=== PATIENT | male | born 1995 | race Two or more races ===

== ENCOUNTER 2024-03-23 06:20 | Emergency (ER) | payer OTHER ==
[~2024-03-23] VITALS: Ht 182.9 cm; Wt 97.0 kg
[2024-03-23 06:21] VITALS: TEMP 97.6
[2024-03-23] MEDS ORDERED: OMEP20 PO ×2 (06:28→08:29)
[2024-03-23] MEDS ORDERED: PROP10TA73 PO (06:28)
[2024-03-23] MEDS: ONDANSETRON HCL 4 MG/2 ML VIAL IVP ONE (06:56)
[2024-03-23] MEDS: SODIUM CHLORIDE 0.9% 1,000 ML IV ONE (06:57)
[2024-03-23 07:01] LABS: BASOPHILS % (AUTO) 2.7 % (0.0-2.0); EOSINOPHILS % (AUTO) 0.9 % (1.0-6.0); HEMATOCRIT 43.7 % (41-53); LYMPHOCYTES # (AUTO) 2.4 K/uL (1.0-4.8); LYMPHOCYTES % (AUTO) 55.6 % (22.0-44.0); MEAN CORPUSCULAR HEMOGLOBIN 30.1 pg (26.0-34.0); MEAN CORPUSCULAR HGB CONC 34.4 G/dL (31.0-37.0); MEAN CORPUSCULAR VOLUME 88 fL (80-100); MONOCYTES # (AUTO) 0.4 K/uL (0.1-1.0); MONOCYTES % (AUTO) 10.3 % (2.0-9.0); NEUTROPHILS # (AUTO) 1.3 K/uL (1.8-7.7); NEUTROPHILS % (AUTO) 30.5 % (40.0-70.0); PLATELET COUNT (AUTO) 247 K/uL (150-450); RED BLOOD CELL COUNT(AUTO) 4.99 MIL/uL (4.50-5.90); RED CELL DISTRIBUTION WIDTH 13.9 % (11.5-14.5); WHITE BLOOD COUNT (AUTO) 4.4 K/uL (4.5-11.0)
[2024-03-23 07:16] LABS: ALANINE AMINOTRANSFERASE 34 U/L (12-78); ALBUMIN 3.8 g/dL (3.4-5.0); ALKALINE PHOSPHATASE 60 U/L (46-116); ASPARTATE AMINOTRANSFERASE 30 U/L (15-37); BILIRUBIN,TOTAL 1.2 mg/dL (0.1-1.0); CALCIUM, TOTAL 9.5 mg/dL (8.8-10.5); CARBON DIOXIDE 23 mmol/L (22-29); CREATININE 0.88 mg/dL (0.60-1.30); GLOMERULAR FILTR. RATE CALC > 60 mL/min (>60); GLUCOSE,RANDOM 103 mg/dL (70-110); LIPASE 46 U/L (16-77); UREA NITROGEN, BLOOD 4 mg/dL (7-18)
[2024-03-23 07:44] LABS: ALCOHOL, BLOOD (SERUM) 165 mg/dL (0-10)
[2024-03-23] MEDS: OMEPRAZOLE 20 MG CAPSULE PO ONE (07:46)
[2024-03-23] MEDS: LORazepam 2 MG/ML VIAL IVP ONE (07:46)
[2024-03-23 08:03] LABS: ANION GAP 15 mmol/L (8-16); CHLORIDE 103 mmol/L (98-107); POTASSIUM 3.3 mmol/L (3.5-5.1); SODIUM SERUM 141 mmol/L (136-145)
[2024-03-23] MEDS ORDERED: LORA-1000 PO (08:29)
[2024-03-23 08:45] VITALS: BP 128/83; PULSE 60; RESP 16
[2024-03-23] MEDS: LORazepam 1 MG TABLET PO ONE (08:50)
== END 2024-03-23 09:16 | disposition home or self-care (01) ==
LOC: EMS 06:23
DX: F10.129 Alcohol abuse with intoxication, unspecified (principal); I10 Essential (primary) hypertension; K21.9 Gastro-esophageal reflux disease without esophagitis; F41.9 Anxiety disorder, unspecified; R10.13 Epigastric pain; R06.00 Dyspnea, unspecified; Z79.899 Other long term (current) drug therapy; Y90.6 Blood alcohol level of 120-199 mg/100 ml
CPT/HCPCS: 99284; 96374; 96361; 96375; 80048; 80076; 83690; 85025; 36415; G0480; J2060; J2405; J7030